=== PATIENT | male | born 2000 | race American Indian/Alaskan Native ===

== ENCOUNTER 2021-09-10 09:23 | Emergency (ER) | payer SELFPAY ==
--- NOTE | 2021-09-10 11:59 | Emergency Department Report ---
ED Head Trauma HPI - General Chief complaint: Laceration/Recheck/Suture Stated complaint: FALL Time Seen by Provider: 09/10/21 11:34 Source: patient Mode of arrival: Ambulatory Limitations: No Limitations - History of Present Illness Initial comments: 20-year-old black male with no past medical history presents to the emergency department for evaluation of head injury and scalp laceration. He states that while at work, he fell and hit his head. He denies loss of consciousness, dizziness, headache, nausea, vomiting. He presents with laceration to frontal scalp MD Complaint: head injury, fall -: Sudden Arrival Conditions: Negative: C-spine immobilization present, spinal board immobilization present Mechanism of Injury: work related injury Location: frontal Loss of Consciousness: no Previous Trauma to this Area: No Place: work Radiation: none Severity scale (0 -10): 0 Other Injuries: laceration Associated Symptoms: denies: confusion, amnesia, repetitive questioning, vision changes, nausea, vomiting, vertigo, syncope, weakness, tingling, neck pain - Related Data Allergies/Adverse reactions: Allergies Allergy/AdvReac Type Severity Reaction Status Date / Time No Known Allergies Allergy Verified 09/10/21 09:46 ED Review of Systems ROS: Stated complaint: FALL Other details as noted in HPI Comment: All other systems reviewed and negative Constitutional: denies: chills, fever Eyes: denies: vision change Respiratory: denies: shortness of breath, SOB with exertion, SOB at rest Cardiovascular: denies: chest pain, palpitations Gastrointestinal: denies: abdominal pain, nausea, vomiting Musculoskeletal: denies: back pain Neurological: denies: headache, weakness, numbness, paresthesias, confusion, abnormal gait, vertigo ED Past Medical Hx - Past Medical History Previous Medical History?: No ED Physical Exam - General Limitations: No Limitations General appearance: alert, in no apparent distress - Head Head exam: Present: normocephalic. Absent: atraumatic - Expanded Head Exam Expanded Head exam: Present: laceration 1 - 0.5 cm laceration with bleeding controlled. - Eye Eye exam: Present: normal appearance. Absent: conjunctival injection - Neck Neck exam: Present: normal inspection, full ROM. Absent: tenderness - Respiratory Respiratory exam: Absent: respiratory distress - Cardiovascular Cardiovascular Exam: Present: bradycardia - GI/Abdominal GI/Abdominal exam: Present: soft. Absent: distended - Extremities Exam Extremities exam: Present: normal inspection - Back Exam Back exam: Present: normal inspection. Absent: tenderness, vertebral tenderness - Neurological Exam Neurological exam: Present: alert, oriented X3, CN II-XII intact, normal gait, reflexes normal. Absent: motor sensory deficit - Psychiatric Psychiatric exam: Present: normal affect, normal mood - Skin Skin exam: Present: dry, normal color. Absent: intact ED Course Vital Signs 09/10/21 09/10/21 09:45 12:17 Temperature 97.9 F Pulse Rate 59 L 75 Respiratory 16 16 Rate Blood Pressure 125/60 Blood Pressure 122/64 [Right] O2 Sat by Pulse 100 100 Oximetry - Medical Decision Making 20-year-old black male with no past medical history presents to the emergency department for evaluation of head injury and scalp laceration. He states that while at work, he fell and hit his head. He denies loss of consciousness, dizziness, headache, nausea, vomiting. He presents with laceration to frontal scalp No abnormalities noted on neurologic exam. Patient noted to have 0.5 cm laceration to right frontal scalp. Laceration well approximated, so no mikel needed. Tdap is not up-to-date, but patient has refused tetanus stating that he "does not do needles". He was educated on need importance of Tdap, but he continues to refuse. Patient to be discharged home with strict return precautions for any changes in mentation, nausea vomiting, changes in gait, or any other concerning symptoms. He verbalized understanding of and agreement with plan of care. - NEXUS Criteria Focal neurological deficit present: No Midline spinal tenderness present: No Altered level of consciousness: No Intoxication present: No Distracting injury present: No NEXUS results: C-Spine can be cleared clinically by these results. Imaging is not required. Critical care attestation.: If time is entered above; I have spent that time in minutes in the direct care of this critically ill patient, excluding procedure time. ED Disposition Clinical Impression: Head injury Qualifiers: Encounter type: initial encounter Qualified Code(s): S09.90XA - Unspecified injury of head, initial encounter Scalp laceration Qualifiers: Encounter type: initial encounter Qualified Code(s): S01.01XA - Laceration without foreign body of scalp, initial encounter Disposition: HOME / SELF CARE / HOMELESS Is pt being admited?: No Does the pt Need Aspirin: No Condition: Stable Instructions: Head Injury, Adult, [id number], Laceration Care, Adult, Easy-to -Read Additional Instructions: Follow-up with primary care provider if worsening symptoms. Referrals: DANIEL DELVALLE MD [Referring] - 3-5 Days Forms: Work/School Release Form(ED) Time of Disposition: 11:59
[2021-09-10 12:19] VITALS: BP 122/64
== END 2021-09-10 12:20 | disposition home or self-care (01) ==
LOC: ED 09:23
DX: S01.01XA Laceration without foreign body of scalp, initial encounter (principal); S09.8XXA Other specified injuries of head, initial encounter; W19.XXXA Unspecified fall, initial encounter; Y93.89 Activity, other specified; Y92.89 Other specified places as the place of occurrence of the external cause; Y99.8 Other external cause status
CPT/HCPCS: 99282